=== PATIENT | male | born 1955 | race African-American/Black ===

== ENCOUNTER 2017-01-01 17:38 | Emergency (ER) | payer MEDICARE, OTHER ==
[~2017-01-01] VITALS: Ht 180.3 cm; Wt 93.0 kg
[2017-01-01 18:03] VITALS: BP 147/88
[2017-01-01 18:55] VITALS: BP 147/88
--- NOTE | 2017-01-02 14:19 | Emergency Room Report ---
History of Present Illness General Chief Complaint: Abnormal Labs Source: Patient Present Illness HPI 61-year-old male presents ED for evaluation. Patient was sent for evaluation of abnormal labs. Patient had lab work done 2 days ago at his PMD office. Office call yesterday stating that he is sugar was critically low. came today for evaluation. On blood work his sugar was 38. Accu-Chek in triage was 119. Patient states he feels fine. Denies history of diabetes. Is not taking any medications for diabetes. States that when the blood work was drawn he felt fine at the time. Denies any dizziness and weakness. Patient states he's eating well and drinking well. No aggravating or relieving factors. Denies any other associated symptoms Allergies: Coded Allergies: No Known Allergies (Unverified , 05/29/14) Patient History Past Medical History: none Past Surgical History: none Pertinent Family History: none Social History: Denies: alcohol use, drug use, smoking Immunizations: UTD Reviewed Nursing Documentation: PMH: Agreed, PSxH: Agreed Nursing Documentation-PMH Past Medical History: No History, Except For Review of Systems All Other Systems: negative except mentioned in HPI Physical Exam Vital Signs Date Time Temp Pulse Resp B/P Pulse Ox O2 Delivery O2 Flow Rate FiO2 01/01/17 17:47 98.1 81 16 147/88 100 Room Air Sp02 EP Interpretation: reviewed, normal General Appearance: no apparent distress, alert, GCS 15, non-toxic Head: normocephalic, atraumatic Eyes: bilateral eye PERRL, bilateral eye normal inspection ENT: hearing grossly normal, normal pharynx, no angioedema, normal voice Neck: full range of motion, supple/symm/no masses Respiratory: chest non-tender, lungs clear, normal breath sounds, speaking full sentences Cardiovascular #1: regular rate, rhythm, no edema Cardiovascular #2: 2+ carotid (R), 2+ carotid (L), 2+ radial (R), 2+ radial (L) , 2+ dorsalis pedis (R), 2+ dorsalis pedis (L) Gastrointestinal: normal bowel sounds, non tender, soft, non-distended, no guarding, no rebound Rectal: deferred Genitourinary: normal inspection, no CVA tenderness Musculoskeletal: back normal, gait/station normal, normal range of motion, non- tender Neurologic: alert, oriented x3, responsive, motor strength/tone normal, sensory intact, speech normal Psychiatric: judgement/insight normal, memory normal, mood/affect normal, no suicidal/homicidal ideation Reflexes: 3+ bicep (R), 3+ bicep (L), 3+ tricep (R), 3+ tricep (L), 3+ knee (R) , 3+ knee (L) Skin: normal color, no rash, warm/dry, well hydrated Lymphatic: no adenopathy Medical Decision Making Diagnostic Impression: Primary Impression: Hypoglycemia ER Course 61-year-old male referred to ED for evaluation of abnormal labs. Glucose 38 Differential-hypoglycemia, polypharmacy, dehydration Patient placed on stretcher. After initial history and physical Accu-Chek in ED was done. Accu-Chek was 119. Patient denies history of diabetes. States he is eating and drinking well. Patient states he felt fine at the time of blood draw. Possible that there was lap her. I have no reason to believe patient blood sugar will drop again. Patient is not on any diabetic medications. Patient states that since his Accu-Chek is normal not like to be discharged. Given patient appears well I believe patient be safely discharged to home with followup with PMD Diagnosis-hypoglycemia stable and discharged to home. Followup with PMD. Return to ED if symptoms recur or worsen Last Vital Signs Date Time Temp Pulse Resp B/P Pulse Ox O2 Delivery O2 Flow Rate FiO2 01/01/17 18:55 98.1 82 18 147/88 100 Room Air Status: improved Disposition: HOME, SELF-CARE Condition: Stable Referrals: NON PHYSICIAN (PCP) Patient Instructions: Basic Metabolic Panel SERGIO TAYLOR M.D. Jan 02, 2017 14:19
== END 2017-01-01 18:55 | disposition home or self-care (01) ==
LOC: EMR 18:02
DX: E16.2 Hypoglycemia, unspecified (principal)
CPT/HCPCS: 82962; 99282